=== PATIENT | female | born 1950 | race Caucasian/White ===

== ENCOUNTER 2018-11-28 06:51 | Inpatient (IN) ==
[2018-11-22 16:59] LABS: Appearance,Urine CLEAR; Bacteria,Urine 0 /hpf (0); Bilirubin,Urine NEG (NEG); Color,Urine YELLOW; Culture Indicated,Urine YES; Glucose,Urine (UA) NEGATIVE (NEG); Ketones,Urine NEG (NEG); Leukocyte Esterase,Urine 75 /uL (NEG); Mucus,Urine MANY /hpf (0); Nitrate,Urine NEG (NEG); Protein,Urine NEG (NEG); Specific Gravity,Urine 1.018 (1.000-1.035); Urine Blood 0.03 mg/dL (<0.03); Urine RBC 1 /hpf (0-1); Urine Squamous Epithelial Cell 2 /hpf (0-4); Urine Transitional Epi Cells < 1 /hpf (0-2); Urine WBC 12 /hpf (0-4); Urobilinogen,Urine NEG (NEG)
[2018-11-22 17:07] LABS: Basophils # (Auto) 0 K/mcL (0.0-0.3); Basophils % (Auto) 0.5 % (0.0-2.0); Eosinophils # (Auto) 0.1 K/mcL (0.0-0.7); Eosinophils % (Auto) 2.7 % (0.0-7.0); Granulocytes % (Auto) 50.6 % (38.0-78.0); Hemoglobin 13.9 g/dL (12.0-15.0); Lymphocytes % (Auto) 39.6 % (15.5-49.0); Mean Cell Volume 88.7 fL (80.0-100.0); Mean Corpuscular HGB Conc 33.2 g/dL (31.0-36.0); Mean Platelet Volume 8.6 fL (7.4-10.4); Monocytes # (Auto) 0.3 K/mcL (0.1-0.9); Monocytes % (Auto) 6.6 % (1.0-12.0); Platelet Count 164 K/mcL (140-440); RBC 4.73 M/mcL (4.00-5.20); Red Cell Distribution Width 12.8 % (11.5-14.5); WBC 5.1 K/mcL (4.5-11.0)
[2018-11-22 17:36] LABS: Estimated Average Glucose(eAG) 120 mg/dL; Hemoglobin A1C 5.8 % HGB (4.0-6.0)
[2018-11-22 17:58] LABS: Blood Urea Nitrogen 12 mg/dl (8-23); Calcium 9.5 mg/dl (8.6-10.4); Carbon Dioxide 24 mmol/L (22-30); Chloride 99 mmol/L (96-108); Glomerular Filtration Rate 76; Glucose 79 mg/dL (70-105); Potassium 3.6 mmol/L (3.3-5.1); Sodium 137 mmol/L (133-145)
[~2018-11-28 06:51] MED LIST: 0.9 % SODIUM CHLORIDE 9 ML, KETOROLAC 30 MG, ROPIVACAINE HCL/PF 49.5 ML, EPINEPHrine 0.... IJ SCH; CELECOXIB 200 MG CAPSULE PO SCH; PREGABALIN 75 MG CAPSULE PO SCH; ceFAZolin 2 GM in DEXTROSE 5% IN WATER 50 ML IV SCH; oxyCODONE 10 MG TAB.ER.12H PO SCH
[2018-11-28] MEDS ORDERED: SCOPOLAMINE 1 PATCH PATCH TOPICAL PRN (07:00)
[2018-11-28] MEDS ORDERED: IPRATROPIUM/ALBUTEROL 3 ML AMPUL.NEB NEB PRN ×2 (07:00→11:02)
[2018-11-28] MEDS ORDERED: ePHEDrine 50 MG/ML AMPUL IV ONE (09:35)
[2018-11-28] MEDS ORDERED: ONDANSETRON 4 MG/2 ML VIAL IV ONE (09:35)
[2018-11-28] MEDS ORDERED: PROPOFOL 200 MG/20 ML VIAL IV ONE (09:35)
[2018-11-28] MEDS ORDERED: DEXAMETHASONE 10 MG/ML VIAL IV ONE (09:35)
[2018-11-28] MEDS ORDERED: LIDOCAINE HCL/PF 100 MG/5 ML SYRINGE IV ONE (09:35)
[2018-11-28] MEDS ORDERED: MIDAZOLAM 5 MG/5 ML VIAL IV ONE (09:35)
[2018-11-28] MEDS ORDERED: TRANEXAMIC ACID 1,000 MG/10 ML VIAL IV ONE ×2 (09:35→11:05)
[2018-11-28] MEDS ORDERED: ROPIVACAINE HCL/PF 20 ML VIAL IJ ONE (09:35)
--- NOTE | 2018-11-28 09:39 | Discharge Summary ---
Ortho Discharge - TKA - Patient Instructions Diet: Regular Diet Activity: weight bearing as tolerated Total Knee Protocol: For Total Knee: Start ROM CONSTANZA with stationary bike or rocking chair. Work on gaining full extension of knee. Posterior dislocation precautions provided. Hip abductor strengthening and gait training instructions provided. Apply Cryocuff as instructed. Dressing Care: Aquacel Ag - leave on for 5 days - Follow Up Plan Follow Up Appointments: Silverio Starr PA-C [Physician Pant[facility] Steward/Stewardess] - Disposition: Home, Self-Care Prognosis: Good Rehab Potential: Good - Orders For Discharge Additional Discharge Orders: Physical Therapy at Discharge - TKA Location: None Selected Toilet Riser Discharge Order Location: None Selected Walker Location: None Selected
[2018-11-28] MEDS ORDERED: BENZOCAINE/MENTHOL 1 LOZENGE PO PRN ×2 (11:02→11:05)
[2018-11-28] MEDS ORDERED: MEPERIDINE 25 MG/ML SYRINGE IV PRN (11:02)
[2018-11-28] MEDS ORDERED: PROMETHAZINE 25 MG/ML VIAL IV PRN (11:02)
[2018-11-28] MEDS ORDERED: diphenhydrAMINE 50 MG/ML VIAL IV PRN (11:02)
[2018-11-28] MEDS ORDERED: LACTATED RINGERS 250 ML IV PRN (11:02)
[2018-11-28] MEDS ORDERED: fentaNYL 100 MCG/2 ML VIAL IV PRN (11:02)
[2018-11-28] MEDS ORDERED: ONDANSETRON 4 MG/2 ML VIAL IV PRN ×2 (11:02→11:05)
[2018-11-28] MEDS ORDERED: ACETAMINOPHEN 1,000 MG/100 ML BOTTLE IV ONE (11:02)
[2018-11-28] MEDS ORDERED: NALOXONE HCL 0.4 MG/ML VIAL IV PRN (11:02)
[2018-11-28] MEDS ORDERED: FLUMAZENIL 0.1 MG/ML ML IV PRN (11:02)
[2018-11-28] MEDS ORDERED: HYDROmorphone 2 MG/ML VIAL IV PRN (11:05)
[2018-11-28] MEDS ORDERED: BISACODYL 10 MG SUPP.RECT PR PRN (11:05)
[2018-11-28] MEDS ORDERED: FLEETS ADULT ENEMA PR PRN (11:05)
[2018-11-28] MEDS ORDERED: MAGNESIUM HYDROXIDE 30 ML ORAL.SUSP PO PRN (11:05)
[2018-11-28] MEDS ORDERED: POLYETHYLENE GLYCOL 3350 17 GM PACKET PO PRN (11:05)
--- NOTE | 2018-11-28 11:05 | Brief Operative Note ---
Date of procedure: 11/28/18 Pre-op diagnosis: Left knee DJD Post-op diagnosis: same Procedure: Left robotic assisted total knee arthroplasty Grafts/Implants: Yes (Olga Triathlon CR 3 femur, 3 tibia, 9mm insert, 33 patella) Anesthesia: spinal, GLMA Findings: arthritis Complications: none Surgeon: Cortez Rebollar Computational Chemist: Silverio Starr Estimated blood loss (cc): 30 Specimens Removed/Pathology: none sent Condition: stable Disposition: PACU
[2018-11-28] MEDS ORDERED: ALBUTEROL SULFATE 1 PUFF INHALER INH PRN (11:08)
[2018-11-28] MEDS ORDERED: LACTATED RINGERS 1,000 ML IV SCH (11:15)
--- NOTE | 2018-11-28 11:36 | Operative Note ---
DATE OF OPERATION: 11/28/2018 PREOPERATIVE DIAGNOSIS: Left knee degenerative joint disease. POSTOPERATIVE DIAGNOSIS: Left knee degenerative joint disease. PROCEDURE PERFORMED: Left robotic-assisted total knee arthroplasty placing a Cartwright Triathlon cruciate retaining size 3 femoral component, size 3 tibial baseplate, a 9 mm X3 tibial insert with a 33 mm patellar button. SURGEON: Cortez Rebollar M.D. DISPOSAL WORKER: Angel Starr PA-C. The PA's assistance was required for the safe and efficient completion of the entire case. This provider's expertise and technical skill were required throughout the case. The PA assisted with preoperative coordination, intraoperative retraction, wound closure, dressing and splint application, as well as postoperative documentation and care coordination. ANESTHESIA: Spinal plus general. DRAINS: None. SPECIMENS: Bone cuts which were discarded. BLOOD LOSS: 30 mL. COMPLICATIONS: None. POSTOPERATIVE CONDITION: Stable. INDICATIONS FOR SURGERY: This is a 68-year-old female who has had worsening left knee pain. She had previous history of arthroscopy. X-rays showed substantial joint space narrowing and osteophyte formation. FINDINGS AT SURGERY: She did have advanced degenerative arthritis in addition to a degenerative meniscal tear. Post implantation showed good limb alignment, patellar tracking, and joint stability. PROCEDURE IN DETAIL: The patient had been seen preoperatively and informed consent had been obtained after discussion of risks and benefits of surgery. Risks including, but not limited to, bleeding; infection, possibly requiring implant removal and prolonged IV antibiotics; injury to nerves, blood vessels, and other surrounding structures; anesthetic risks; incomplete or no resolution of symptoms; stiffness; swelling; pain; instability; DVT and pulmonary embolus risks; and the possibility of needing further revision joint surgery. She understood and wished to proceed. Correct operative site was marked and the patient was given spinal anesthesia. She was then taken to the operating room and LMA general given. The left lower extremity was carefully prepped and draped in normal sterile fashion, and a time-out was performed verifying patient name, operative site, and plan. Esmarch was used to exsanguinate the extremity and tourniquet was inflated. Ioban was used to cover all skin surfaces. A midline incision was made with scalpel through skin and subcutaneous tissue. Irrisept was irrigated and then a medial parapatellar arthrotomy made. Subperiosteal exposure was done of the anterior medial tibia and then anterior horns of the menisci were removed, as well as retropatellar fat pad. ACL was also transected. Femoral and tibial checkpoints were placed. Irrisept was irrigated. We made two stab incisions over the tibia and two over the femur and bicortical pins placed and the arrays were connected. We then did our hip center of rotation check. Green probe was used to identify the medial and lateral malleoli, as well as do double-checks of our checkpoints. We then used the blue probe to do our mapping. A rongeur was used to remove osteophytes. Spoons were then used to check our flexion-extension gaps. We ended up doing 3 degrees of varus on the femur to give us 17 mm gaps on all four numbers. Patellar tracking looked good and sizing was appropriate, so we went ahead and used the robotic arm to make our bone cuts. We then prepared the tibia with a tibial baseplate trial, externally rotated as bone coverage would allow. A boss reamer and keel punch were used to prepare and then the keeled tibial trial placed. Femur was elevated and curved osteotome used to remove any posterior osteophytes. We then placed a femoral trial and pinned this into place. The peg holes were drilled and then a 9 insert trial was impacted. The knee was taken into extension. We had about 8 degrees short of full. We measured the patellar thickness and then did a freehand resection, sized this to a 33. This was medialized maximally. Holes were drilled and then trial placed. Post-resection was within a millimeter. We went ahead and did a limited lateral facetectomy. We checked our patellar tracking, which was good without tilt or subluxation. We removed trial implants while definitive implants were opened. We irrigated the joint with Irrisept. Antibiotic cement was mixed. After a minute we pulse lavaged with saline and then a CO2 gun was used to clean and dry the cancellous bone surface. We then cemented the tibia. Excess cement removed. We cemented the femur and excess cement removed. The 9 insert trial was impacted, and the knee was taken into extension, and the patellar button was cemented. We removed our checkpoints and filled the joint with Irrisept. We also removed our pins with the arrays. After cement had fully hardened, we pulse lavaged copiously with saline and then we removed the insert trial. A 9 insert was opened. While cement had been hardening, we did inject pain cocktail into the pericapsular and subcutaneous tissues. After the insert trial was removed, we injected the remainder of the cocktail in the posteromedial capsule. The tray was filled with Irrisept and then the definitive insert was impacted. We did another Irrisept irrigation, after a minute pulse lavage, and then the knee was taken into 45 degrees of flexion. Interrupted #2 FiberWire [id number] were used around the superior quadrant of the patella, interrupted #1 Vicryl [id number] around the inferior quadrant. Running #1 Vicryl was used for patellar tendon and quad tendon. Final Irrisept irrigation was done, after a minute final pulse lavage, and then 2-0 Monocryl was used for subcutaneous and gladis for skin. Xeroform and sterile dressing were applied. Tourniquet was released. The patient was awakened, extubated, and transferred to recovery in stable condition. BJB:dami Job ID: [id number] Doc ID: [id number] Cortez Rebollar MD
--- NOTE | 2018-11-28 11:52 | XRay Report ---
CLINICAL INFORMATION: Postsurgical follow-up TECHNIQUE: AP, crosstable lateral, patellar views of the left knee COMPARISON: None. FINDINGS: Status post left total knee arthroplasty. Femoral and tibial components are in anatomic position. There are skin gladis anteriorly. IMPRESSION: Status post left total knee arthroplasty Interpreted and Authenticated by: Jemal Comer 11/28/18
[2018-11-28] MEDS: KETOROLAC 15 MG/ML VIAL IV SCH ×2 (12:05→17:46)
[2018-11-28] MEDS: 0.9 % SODIUM CHLORIDE 1,000 ML IV SCH ×2 (12:28→21:24)
[2018-11-28] MEDS: 0.9 % SODIUM CHLORIDE 10 ML SYRINGE IV SCH ×2 (13:46→21:42)
[2018-11-28] MEDS: ceFAZolin 1 GM VIAL IV SCH (17:18)
[2018-11-28] MEDS: DOCUSATE SODIUM 100 MG CAPSULE PO SCH (20:52)
[2018-11-28] MEDS: ASPIRIN 81 MG TAB.CHEW PO SCH (20:52)
[2018-11-28] MEDS ORDERED: SENNOSIDES 1 TABLET PO SCH (21:00)
[2018-11-28] MEDS ORDERED: LISINOPRIL 20 MG TABLET PO SCH (21:00)
[2018-11-28] MEDS ORDERED: SIMVASTATIN 20 MG TABLET PO SCH (21:00)
[2018-11-28] MEDS ORDERED: HYDROCHLOROTHIAZIDE 12.5 MG CAPSULE PO SCH (21:00)
[2018-11-28] MEDS ORDERED: DOXYCYCLINE HYCLATE 100 MG TABLET.ORL PO SCH (21:00)
[2018-11-28] MEDS: HYDROcodone/APAP 10/325MG TABLET PO PRN (21:22)
[2018-11-29] MEDS: KETOROLAC 15 MG/ML VIAL IV SCH ×2 (00:23→05:47)
[2018-11-29] MEDS: ceFAZolin 1 GM VIAL IV SCH (00:23)
[2018-11-29] MEDS: HYDROcodone/APAP 10/325MG TABLET PO PRN ×2 (04:37→08:56)
[2018-11-29] MEDS: 0.9 % SODIUM CHLORIDE 10 ML SYRINGE IV SCH (05:55)
--- NOTE | 2018-11-29 07:51 | Orthopedic Progress Note ---
Subjective Patient information: Note initiated : 11/29/18 at 7:49 am Service Date, if different from initiated Date: [] Patient: Nanci Maurer 68 y/o F admitted on 11/28/18 for Left Total Knee Arthroplasty. She is POD 1 overall doing well. Her pain is managed. Denies SOB, chest pains, nausea, vomiting. BP is lower than normal this AM. Chief Complaint: [] s/p Left TKA Pertinent ROS: negative except those noted in HPI. Objective Vital signs: Vital Signs Temp Pulse Pulse Resp BP BP BP 11/29/18 06:42 97.6 F 20 89/44 91/53 11/29/18 04:14 98.4 F 82 14 100/62 11/28/18 23:37 97.3 F 86 14 110/66 11/28/18 19:37 97.1 F 85 14 112/66 11/28/18 16:46 97.8 F 85 16 140/61 11/28/18 14:00 88 16 143/65 11/28/18 13:30 88 18 124/49 11/28/18 13:00 82 14 115/55 11/28/18 12:45 87 16 133/68 11/28/18 12:30 80 16 114/39 11/28/18 12:16 97.3 F 76 12 123/57 11/28/18 12:15 97.2 F 79 16 11/28/18 11:55 78 12 107/62 11/28/18 11:40 80 11 L 114/59 11/28/18 11:35 76 11 L 110/59 11/28/18 11:30 78 12 110/55 11/28/18 11:25 97.2 F 76 10 L 105/53 11/28/18 07:56 97.4 F 79 16 121/80 Pulse Ox 11/29/18 06:42 94 11/29/18 04:14 95 11/28/18 23:37 91 11/28/18 19:37 95 11/28/18 16:46 98 11/28/18 14:00 98 11/28/18 13:30 93 11/28/18 13:00 97 11/28/18 12:45 94 11/28/18 12:30 98 11/28/18 12:16 95 11/28/18 12:15 94 11/28/18 11:55 96 11/28/18 11:40 97 11/28/18 11:35 97 11/28/18 11:30 97 11/28/18 11:25 97 11/28/18 07:56 96 Intake and Output 11/28/18 11/29/18 11/29/18 21:59 05:59 13:59 Intake Total 1553 550 Output Total 1600 550 Balance -47 0 Intake: IV 893 Sodium Chloride 0.9% 1,000 ml @ 893 100 mls/hr IV .Q10H SHIELA Rx#: [id number] Oral 660 550 Output: Void Amount 800 550 Emesis 800 Other: Meal Dinner Percent of Meal Consumed 0% Feeding Ability Independent Urine Appearance Clear Clear Urine Color Bright Yellow Bright Yellow Urine Odor Normal Normal Weight 215 lb 6.4 oz Intake & Output: Intake & Output 11/28/18 11/29/18 11/29/18 21:59 05:59 13:59 Intake Total 1553 550 Output Total 1600 550 Balance -47 0 Weight 215 lb 6.4 oz Intake: IV 893 Sodium Chloride 0.9% 1,000 ml @ 893 100 mls/hr IV .Q10H SHIELA Rx#: [id number] Oral 660 550 Output: Void Amount 800 550 Emesis 800 Other: Meal Dinner Percent of Meal Consumed 0% Feeding Ability Independent Urine Appearance Clear Clear Urine Color Bright Yellow Bright Yellow Urine Odor Normal Normal Dressing: Yes clean, Yes dry, Yes intact Weight bearing status: as tolerated Neurological exam IM: Yes alert, Yes oriented X3, Yes neurovascular intact Extremities exam IM: No calf tenderness, Yes normal inspection - Labs CBC & BMP: 11/22/18 15:28 11/22/18 15:28 Labs: 11/22/18 15:28 Hgb 13.9 Hct 42.0 Assessment and Plan (1) Hx of total knee arthroplasty Status: Acute - Narrative A/P Narrative: Pt is 1 day s/p left TKA with Dr. Rebollar. Overall doing well. She has been up walking to the bathroom but has not yet seen physical therapy. Plan will be for DC to home today after therapy. She would like to do therapy in [place]. Keep Aquacel dressing on x 5 days. Rx to start PT. Prescription for pain medication already picked up. Continue ASA 81 mg BID x 2 weeks. Followup with our office in approximately 2 weeks for staple removal.
[2018-11-29] MEDS: DOCUSATE SODIUM 100 MG CAPSULE PO SCH (08:56)
[2018-11-29] MEDS: ASPIRIN 81 MG TAB.CHEW PO SCH (08:56)
== END 2018-11-29 10:55 | disposition home or self-care (01) | DRG 470 ==
LOC: MEDSUR 06:51
PROVIDERS: ADMIT Orthopaedic Surgery; ATTEND Orthopaedic Surgery